=== PATIENT | female | born 1970 | race Two or more races ===

== ENCOUNTER 2022-08-22 18:07 | Emergency (ER) | payer OTHER ==
[~2022-08-22] VITALS: Ht 167.6 cm; Wt 90.7 kg
[~2022-08-22 18:07] MED LIST: DAFLONEX-XL 11300 MG PO; HYDROCHLOROTH12.5 MG PO; NORFLEX100MG PO; ZESTRIL10 M1 PO
== END 2022-08-22 22:32 | disposition home or self-care (01) ==
LOC: ER 18:07
DX: M25.562 Pain in left knee (principal); M25.561 Pain in right knee; M54.2 Cervicalgia; Z88.6 Allergy status to analgesic agent; M25.579 Pain in unspecified ankle and joints of unspecified foot; M17.11 Unilateral primary osteoarthritis, right knee

== ENCOUNTER 2023-01-10 09:40 | Emergency (ER) | payer OTHER ==
[~2023-01-10] VITALS: Ht 167.6 cm; Wt 92.1 kg
== END 2023-01-10 11:26 | disposition left against medical advice (07) ==
LOC: ER 09:40
DX: Z53.21 Procedure and treatment not carried out due to patient leaving prior to being seen by health care provider (principal)